=== PATIENT | male | born 1995 | race American Indian/Alaskan Native ===

== ENCOUNTER 2017-06-08 22:33 | Emergency (ER) | payer SELFPAY ==
[2017-06-09 00:28] LABS: Creatine Kinase MB 3.4 ng/mL (0.0-4.0)
[2017-06-09 00:29] LABS: Alanine Aminotransferase 19 units/L (7-56); Albumin 4.3 g/dL (3.9-5); Albumin/Globulin Ratio 1.2 %; Alkaline Phosphatase 75 units/L (35-129); Blood Urea Nitrogen 13 mg/dL (9-20); Calcium 9.6 mg/dL (8.4-10.2); Carbon Dioxide 28 mmol/L (22-30); Chloride 101.4 mmol/L (98-107); Glucose 52 mg/dL (75-100); Lipase 46 units/L (13-60); Potassium 4.4 mmol/L (3.6-5.0); Sodium 142 mmol/L (137-145)
[2017-06-09 00:30] LABS: Bilirubin,Urine NEG (Negative); Blood,Urine NEG (Negative); Ketones,Urine NEG (Negative); Leukocyte Esterase,Urine NEG (Negative); Mucus,Urine FEW /HPF; Nitrite,Urine NEG (Negative); Protein,Urine <15 mg/dL mg/dL (Negative); Urobilinogen,Urine < 2.0 mg/dL (<2.0)
[2017-06-09 00:31] LABS: Anion Gap 17 mmol/L
[2017-06-09 01:30] LABS: Erythrocyte Sedimentation Rate 1 mm/Hr (0-20)
[2017-06-09 01:56] LABS: Basophils % (Auto) 0.9 % (0.0-1.8); Eosinophils % (Auto) 3.3 % (0.0-4.3); Hematocrit 42.7 % (35.5-45.6); Hemoglobin 13.4 gm/dl (11.8-15.2); Mean Corpuscular HGB Conc 31 % (32-34); Mean Corpuscular Volume 76 fl (84-94); Platelet Count 200 K/mm3 (140-440); Red Blood Count 5.64 M/mm3 (3.65-5.03); Red Cell Distribution Width 13.4 % (13.2-15.2); White Blood Count 5.9 K/mm3 (4.5-11.0)
[2017-06-09 01:58] LABS: Mean Corpuscular Hemoglobin 24 pg (28-32)
[2017-06-09 02:33] LABS: C-Reactive Protein 0.3 mg/dL (0.00-1.30)
[2017-06-09] MEDS ORDERED: NACL 0.9% 1000 ML 1,000 ML IV ONE (08:33)
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
[2017-06-09 10:11] LABS: Bilirubin,Urine NEG (Negative); Blood,Urine NEG (Negative); Ketones,Urine NEG (Negative); Leukocyte Esterase,Urine NEG (Negative); Mucus,Urine FEW /HPF; Nitrite,Urine NEG (Negative); Protein,Urine <15 mg/dL mg/dL (Negative); Urobilinogen,Urine < 2.0 mg/dL (<2.0)
[2017-06-09 10:36] VITALS: BP 139/84
--- NOTE | 2017-06-10 10:18 | ED Elopement Review ---
ED Pt Elopement review - Results review Lab results: Laboratory Tests 06/08/17 06/08/17 06/08/17 23:43 23:43 23:43 WBC 5.9 RBC 5.64 H Hgb 13.4 Hct 42.7 MCV 76 L MCH 24 L MCHC 31 L RDW 13.4 Plt Count 200 Lymph % (Auto) 44.8 H Cecil % (Auto) 9.3 H Eos % (Auto) 3.3 Baso % (Auto) 0.9 Lymph # 2.6 Cecil # 0.5 Eos # 0.2 Baso # 0.1 Seg Neutrophils % 41.7 Seg Neutrophils # 2.5 ESR 1 Sodium 142 Potassium 4.4 Chloride 101.4 Carbon Dioxide 28 Anion Gap 17 BUN 13 Creatinine 1.3 Estimated GFR > 60 BUN/Creatinine Ratio 10.00 Glucose 52 L POC Glucose Lactic Acid 1.30 Calcium 9.6 Total Bilirubin 0.30 AST 30 ALT 19 Alkaline Phosphatase 75 Total Creatine Kinase CK-MB (CK-2) CK-MB (CK-2) Rel Index C-Reactive Protein Total Protein 8.0 Albumin 4.3 Albumin/Globulin Ratio 1.2 Lipase 46 Urine Color Urine Turbidity Urine pH Ur Specific [place] Urine Protein Urine Glucose (UA) Urine Ketones Urine Blood Urine Nitrite Urine Bilirubin Urine Urobilinogen Ur Leukocyte Esterase Urine WBC (Auto) Urine RBC (Auto) U Epithel Cells (Auto) Urine Mucus 06/08/17 06/08/17 06/09/17 23:43 Unknown 09:49 WBC RBC Hgb Hct MCV MCH MCHC RDW Plt Count Lymph % (Auto) Cecil % (Auto) Eos % (Auto) Baso % (Auto) Lymph # Cecil # Eos # Baso # Seg Neutrophils % Seg Neutrophils # ESR Sodium Potassium Chloride Carbon Dioxide Anion Gap BUN Creatinine Estimated GFR BUN/Creatinine Ratio Glucose POC Glucose Lactic Acid Calcium Total Bilirubin AST ALT Alkaline Phosphatase Total Creatine Kinase 947 H CK-MB (CK-2) 3.4 CK-MB (CK-2) Rel Index 0.3 C-Reactive Protein 0.30 Total Protein Albumin Albumin/Globulin Ratio Lipase Urine Color Yellow Yellow Urine Turbidity Clear Clear Urine pH 6.0 5.0 Ur Specific [place] 1.030 1.023 Urine Protein <15 mg/dl <15 mg/dl Urine Glucose (UA) Neg Neg Urine Ketones Neg Neg Urine Blood Neg Neg Urine Nitrite Neg Neg Urine Bilirubin Neg Neg Urine Urobilinogen < 2.0 < 2.0 Ur Leukocyte Esterase Neg Neg Urine WBC (Auto) 2.0 1.0 Urine RBC (Auto) 1.0 2.0 U Epithel Cells (Auto) 1.0 < 1.0 Urine Mucus Few Few 06/09/17 10:01 WBC RBC Hgb Hct MCV MCH MCHC RDW Plt Count Lymph % (Auto) Cecil % (Auto) Eos % (Auto) Baso % (Auto) Lymph # Cecil # Eos # Baso # Seg Neutrophils % Seg Neutrophils # ESR Sodium Potassium Chloride Carbon Dioxide Anion Gap BUN Creatinine Estimated GFR BUN/Creatinine Ratio Glucose POC Glucose 101 Lactic Acid Calcium Total Bilirubin AST ALT Alkaline Phosphatase Total Creatine Kinase CK-MB (CK-2) CK-MB (CK-2) Rel Index C-Reactive Protein Total Protein Albumin Albumin/Globulin Ratio Lipase Urine Color Urine Turbidity Urine pH Ur Specific [place] Urine Protein Urine Glucose (UA) Urine Ketones Urine Blood Urine Nitrite Urine Bilirubin Urine Urobilinogen Ur Leukocyte Esterase Urine WBC (Auto) Urine RBC (Auto) U Epithel Cells (Auto) Urine Mucus - Call Back decision Pt Call Back Decision: No action required
== END 2017-06-09 10:35 | disposition home or self-care (01) ==
LOC: ED 22:33
DX: M79.1 Myalgia (principal); E16.2 Hypoglycemia, unspecified; F17.200 Nicotine dependence, unspecified, uncomplicated
CPT/HCPCS: 36415; 80053; 81001; 82140; 82550; 82553; 82962; 83690; 85025; 85652; 86140; 96360; 99283; J7030

== ENCOUNTER 2017-08-25 20:25 | Emergency (ER) | payer SELFPAY ==
[2017-08-25 20:40] VITALS: BP 126/76
[2017-08-25] MEDS ORDERED: MOTRIN PO ONE (20:40)
[2017-08-25] MEDS ORDERED: MOTRIN ONE (20:45)
[2017-08-25 21:19] LABS: Basophils % (Auto) 0.4 % (0.0-1.8); Eosinophils % (Auto) 0.8 % (0.0-4.3); Hematocrit 41.6 % (35.5-45.6); Hemoglobin 12.9 gm/dl (11.8-15.2); Mean Corpuscular HGB Conc 31 % (32-34); Mean Corpuscular Volume 76 fl (84-94); Platelet Count 195 K/mm3 (140-440); Red Blood Count 5.51 M/mm3 (3.65-5.03); Red Cell Distribution Width 13.8 % (13.2-15.2); White Blood Count 11.2 K/mm3 (4.5-11.0)
[2017-08-25 21:20] LABS: Mean Corpuscular Hemoglobin 24 pg (28-32)
[2017-08-25 21:35] LABS: Anion Gap 15 mmol/L; BUN/Creatinine Ratio 6; Blood Urea Nitrogen 7 mg/dL (9-20); Calcium 9.2 mg/dL (8.4-10.2); Carbon Dioxide 27 mmol/L (22-30); Chloride 97.9 mmol/L (98-107); Glucose 92 mg/dL (75-100); Potassium 4.2 mmol/L (3.6-5.0); Sodium 136 mmol/L (137-145)
--- NOTE | 2017-08-26 08:23 | XRay Report ---
CHEST 2 VIEWS INDICATION: Cough, fever. COMPARISON: None similar. FINDINGS: PA and lateral chest radiographs demonstrate normal cardiomediastinal silhouette. Clear lungs. Intact bones. CONCLUSION: No acute disease in the chest. Thank you for the opportunity to participate in this patient's care.
== END 2017-08-25 23:02 | disposition left against medical advice (07) ==
LOC: ED 20:25
DX: R11.2 Nausea with vomiting, unspecified (principal); J02.9 Acute pharyngitis, unspecified; Z53.21 Procedure and treatment not carried out due to patient leaving prior to being seen by health care provider
CPT/HCPCS: 36415; 71020; 80048; 85025; 87116; 87430